=== PATIENT | male | born 1960 | race Caucasian/White ===

== ENCOUNTER → 2019-04-22 | Outpatient (REF) ==
--- NOTE | 2019-04-22 19:11 | REP ---
AP LATERAL LUMBAR SPINE: 04/22/2019. Clinical history: Disability determination. Findings: Three views with no prior studies provided. AP view shows pedicles, spinous and transverse processes intact. There are marginal osteophytes at most levels. Disc space slightly narrowed at L2-3 and L4-5. There is facet arthropathy L4-5 and greater at L5-S1. No spondylolysis or spondylolisthesis. Atherosclerotic calcification aorta without aneurysm. Sacral ala, foramina and SI joints intact. Impression: 1. Mild straightening of the lumbar spine on the lateral view with diffuse mild degenerative disc changes and some facet arthropathy lower lumbar spine. No compression deformity, spondylolysis or spondylolisthesis. Electronically Signed by Gt Alexander MD 04/22/2019 07:48 P
--- NOTE | 2019-04-22 19:39 | REP ---
HIPS BILATERAL WITH AP PELVIS: 04/22/2019. Clinical history: Pain, disability determination. Findings: No prior study. AP pelvis: The pelvic rim is intact. Pelvic phleboliths are seen. SI joints, sacral ala, foramina and iliac wings, all unremarkable. The acetabuli show degenerative changes with spurring at the roof on each side. The hips show no evidence of fracture or AVN. Pubic rami, symphysis pubis intact. Right hip AP and frog-leg views show acetabular roof of spurring superiorly and laterally. There is no narrowing of the hip joint space fracture, AVN or focal lesion and no acetabular lesion seen. Pubic rami and symphysis pubis intact. It is as is the visualized portion of the iliac bone and right SI joint. Multiple phleboliths seen. Left hip: Some minor degenerative change acetabular roof and minimal degenerative rim osteophyte femoral head on the frog-leg view, acetabulum, ischium and the symphysis pubis as well as the left SI joint and visualized iliac bone grossly intact. Impression: 1. Minimal degenerative changes at the acetabular roof with small spurs as well as a small rim osteophyte in the left femoral head and frog-leg view only. No fracture, AVN or other focal acute finding. Electronically Signed by Gt Alexander MD 04/22/2019 07:50 P
== END ==
LOC: M SMT 11:02
PROVIDERS: ATTEND Internal Medicine
DX: Z00.00 Encounter for general adult medical examination without abnormal findings (principal)

== ENCOUNTER → 2021-11-21 | Outpatient (REF) | LOC: M PLAIMG 09:41 | PROVIDERS: ATTEND Internal Medicine | DX: M16.12 Unilateral primary osteoarthritis, left hip (principal); M43.07 Spondylolysis, lumbosacral region; M48.07 Spinal stenosis, lumbosacral region; M25.78 Osteophyte, vertebrae ==